=== PATIENT | male | born 1975 | race Two or more races ===

== ENCOUNTER 2017-09-25 06:11 | Day surgery (SDC) | payer OTHER ==
[~2017-09-25] VITALS: Ht 172.7 cm; Wt 122.5 kg
[2017-09-25] MEDS ORDERED: ceFAZolin 1GM/50ML 50 ML IV ONE (06:36)
[2017-09-25] MEDS ORDERED: LIDOCAINE 1% (LOCAL ANESTH.) PF 5ml SDV ONE (07:15)
[2017-09-25] MEDS ORDERED: SUCCINYLCHOLINE CHLORIDE 20 MG/ML 10ML VIAL IV ONE (07:15)
[2017-09-25] MEDS ORDERED: MIDAZOLAM HCL 1MG/1ML-2 ML VIAL ONE (07:19)
[2017-09-25] MEDS ORDERED: PROPOFOL 10 MG/ML 20 ML IV ONE (07:21)
[2017-09-25] MEDS ORDERED: LIDOCAINE HCL 2% TOP JELLY 5ML TOP ONE (07:22)
[2017-09-25] MEDS ORDERED: fentaNYL CITRATE 100 MCG/2 ML VL ONE (07:42)
[2017-09-25] MEDS ORDERED: MORPHINE SULFATE 4 MG/ML SYR/VIAL IV PRN (08:00)
[2017-09-25] MEDS ORDERED: NALOXONE HCL 0.4 MG/ML VIAL IV PRN (08:00)
[2017-09-25] MEDS ORDERED: ONDANSETRON HCL 4 MG/2 ML VIAL IV ONE (08:00)
[2017-09-25 09:06] VITALS: BP 120/67
== END 2017-09-25 09:21 | disposition home or self-care (01) ==
LOC: SUR 06:11
PROVIDERS: ATTEND Urology
DX: N35.9 Urethral stricture, unspecified (principal); R31.0 Gross hematuria; J45.909 Unspecified asthma, uncomplicated; G47.33 Obstructive sleep apnea (adult) (pediatric); F41.9 Anxiety disorder, unspecified; E78.2 Mixed hyperlipidemia; F10.99 Alcohol use, unspecified with unspecified alcohol-induced disorder; E66.01 Morbid (severe) obesity due to excess calories; Z68.41 Body mass index [BMI] 40.0-44.9, adult; I20.9 Angina pectoris, unspecified
CPT/HCPCS: 52276; J0330; J0690; J2250; J2704; J3010; J7030